=== PATIENT | male | born 1950 | race Caucasian/White ===

== ENCOUNTER 2019-03-25 10:35 | Outpatient (CLI) | payer MEDICARE ==
[~2019-03-25 10:35] MED LIST: APIX5TAB4 PO; CARV6.25 PO; CHOL100012 PO; MAGN400T36 PO; OMEG1CAP6 PO; VITAMIN C PO; VITAMIN PO; [UNRECOGNIZED DRUG - OTHER] PO
== END 2019-03-25 23:59 | disposition home or self-care (01) ==
LOC: RAD 10:35
PROVIDERS: ATTEND Nurse Practitioner Family
DX: I48.91 Unspecified atrial fibrillation (principal)
CPT/HCPCS: 78472; A9560

== ENCOUNTER 2019-12-03 12:28 | Outpatient (CLI) | payer MEDICARE ==
[~2019-12-03 12:28] MED LIST changes: +REGADENOSON 0.4 MG/5 ML SYRINGE ONE
== END 2019-12-03 23:59 | disposition home or self-care (01) ==
LOC: CFH 12:28
PROVIDERS: ATTEND Nurse Practitioner Family
DX: Z01.810 Encounter for preprocedural cardiovascular examination (principal); R94.31 Abnormal electrocardiogram [ECG] [EKG]; I42.9 Cardiomyopathy, unspecified
CPT/HCPCS: 78452; 93017; A9502; J2785